=== PATIENT | female | born 1985 | race Caucasian/White ===

== ENCOUNTER 2019-07-04 05:13 | Inpatient (IN) | payer OTHER, BC ==
[2019-07-04] MEDS: ELECTROLYTE-148 SOLN 1,000 ML IV SCH (06:00)
[2019-07-04] MEDS ORDERED: BUTORPHANOL TARTRATE 1 MG/ML VIAL IVPUSH ONE (06:26)
[2019-07-04] MEDS ORDERED: PROMETHAZINE HCL 25 MG/1 ML VIAL IVPB ONE (06:26)
--- NOTE | 2019-07-04 06:32 | HP ---
Past Medical History - Primary Care Physician PCP:: Sharad Zeng - Admission Chief Complaint: 40.3 weeks, labor History of Present Illness: 34 yo f edc by sono 07/01/19 c/o contraction since mid night today, no rom , no bleeding , no fever , cx 4 cm 80 vx -2 mi , fhr cat 1 , regular contraction .GBS negative History Source: Patient Limitations to Obtaining History: No Limitations - Past Medical History ...: 1 ...Para: 0 - Past Surgical History Hx Myomectomy: No Hx Transabdominal Cerclage: No - Smoking History Have you smoked in the past 12 months: No - Alcohol/Substance Use Hx Alcohol Use: No History of Substance Use: reports: None - Social History Usual Living Arrangement: Yes: With Spouse History of Recent Travel: No Home Medications - Allergies Allergies/Adverse Reactions: Allergies Allergy/AdvReac Type Severity Reaction Status Date / Time No Known Allergies Allergy Verified 02/14/19 08:38 - Home Medications Home Medications: Ambulatory Orders Cholecalciferol (Vitamin D3) [Vitamin D -] 1 tab PO DAILY 02/14/19 Prenat 115/Iron Fum/Folic/Dss [ 19 Tablet] 1 tab PO DAILY 02/14/19 Review of Systems - Review of Systems Constitutional: reports: No Symptoms Eyes: reports: No Symptoms HENT: reports: No Symptoms Neck: reports: No Symptoms Cardiovascular: reports: No Symptoms Respiratory: reports: No Symptoms Gastrointestinal: reports: No Symptoms Genitourinary: reports: No Symptoms Musculoskeletal: reports: No Symptoms Integumentary: reports: No Symptoms Neurological: reports: No Symptoms Endocrine: reports: No Symptoms Hematology/Lymphatic: reports: No Symptoms Psychiatric: reports: No Symptoms Physical Exam - Maternity Constitutional: Yes: Well Nourished, No Distress, Calm Eyes: Yes: WNL, Conjunctiva Clear, EOM Intact HENT: Yes: WNL, Atraumatic, Normocephalic Neck: Yes: WNL, Supple, Trachea Midline Cardiovascular: Yes: WNL, Regular Rate and Rhythm Breast(s): Yes: WNL - Abdominal Exam/OB Fundal Height: 40 Number of Fetuses: Single Presentation: Vertex Contractions: Yes Regularity: Regular Intensity: Mod/Strong Monitor Mode: External Heart Rate Location: [facility] Category: I Accelerations: Non-Uniform Decelerations: None - Vaginal Exam/OB Vaginal Bleediing: No Speculum Exam: No Dilatation (cm): 4 cm Effacement (%): 80 Amniotic Membrane Status: Intact Station: -2 - Physical Exam Musculoskeletal: Yes: WNL Extremities: Yes: WNL Edema: Yes Edema: LLE: Trace, RLE: Trace Deep Tendon Reflex Grade: Normal +2 ...Motor Strength: WNL Psychiatric: Yes: WNL Problem List - Problems (1) Post term over 40 weeks Code(s): O48.0 - POST-TERM (2) Labor established Code(s): YNT4364 - Assessment/Plan plan admit , FHM pain management
[2019-07-04] MEDS ORDERED: FENTANYL/BUPIVACAINE/NS/PF - PCEA - 50 ML DISP.SYRIN EP ONE ×2 (06:45→12:53)
[2019-07-04] MEDS: FENTANYL/BUPIVACAINE/NS/PF - PCEA - 50 ML DISP.SYRIN EP SCH (07:00)
[2019-07-04 07:11] LABS: INR 0.92 (0.83-1.09); PROTHROMBIN TIME (PATIENT) 10.9 SEC (9.7-13.0)
[2019-07-04 07:13] LABS: CALCIUM 9.6 mg/dL (8.5-10.1); CREATININE 0.5 mg/dL (0.55-1.3); POTASSIUM 3.7 mmol/L (3.5-5.1)
[2019-07-04 07:14] LABS: ACTIVATED PTT 28.7 SECONDS (25.2-36.5)
[2019-07-04 07:23] LABS: EOS % 0.2 % (0-4.5); HEMATOCRIT 36.7 % (32.4-45.2); HEMOGLOBIN 12.6 GM/dL (10.7-15.3); LYMPH % 27.2 % (8-40); MCH 30.4 pg (25.7-33.7); MCHC 34.3 g/dl (32.0-36.0); MEAN CELL VOLUME 88.6 fl (80-96); MEAN PLT VOLUME 10.4 fl (7.5-11.1); MONO % 7.8 % (3.8-10.2); NEUT % 63.8 % (42.8-82.8); PLATELET COUNT 220 K/MM3 (134-434); RBC 4.14 M/mm3 (3.60-5.2); RDW 13.9 % (11.6-15.6); WHITE BLOOD COUNT 12.9 K/mm3 (4.0-10.0)
[2019-07-04 07:48] VITALS: BMI 39.2
[2019-07-04] MEDS ORDERED: NALOXONE HCL 0.4 MG/ML VIAL IVPUSH PRN (07:53)
[2019-07-04] MEDS ORDERED: FENTANYL/BUPIVACAINE/NS/PF - PCEA - 50 ML DISP.SYRIN EP SCH (08:00)
[2019-07-04] MEDS ORDERED: OXYTOCIN 20 UNITS in 0.9% NS 20 UNIT/1,000 ML INFUS.BAG IV ONE (10:15)
[2019-07-04] MEDS ORDERED: LIDOCAINE HCL 1% PRESERVATIVE FREE - 30ML VIAL ONE (10:15)
--- NOTE | 2019-07-04 10:54 | PN ---
Progress Note, Labor Vaginal Exam #1 Labor Exam Date: 07/04/19 Labor Exam Time: 09:58 Heart Rate (range): 70's prolonged decel Dilatation: FD Effacement (%): 100 Amniotic Membrane Status: Intact Presentation: Vertex/Position Station: -1 (Prolonged FHR decel noted AROM clear fluid, FSE placed FHR recovered fully Will let passive head descent till start 2nd stage)
--- NOTE | 2019-07-04 13:06 | PN ---
Progress Note, Labor Vaginal Exam #2 Labor Exam Date: 07/04/19 Labor Exam Time: 13:00 Heart Rate (range): 140' several varriables Dilatation: FD Effacement (%): 100 Amniotic Membrane Status: Ruptured Presentation: Vertex/Position Station: +1 Remarks: Patient is very uncooperative, demanding pain medication, refusing to push, difficult to reason with I gave patient further medication into epidural catheter FHR is recovering
--- NOTE | 2019-07-04 14:33 | PN ---
Delivery - Delivery Vaginal Delivery: No Problems (Cord around the neck x 1) Type of Anesthesia: Epidural Episiotomy/Laceration: 1st degree (and R labia lateral tear) EBL (cc): 300 Delivery, Single - Stages of Labor Date 1st Stage Initiatied: 07/04/19 Time 1st Stage Initiated: 06:45 Date 2nd Stage Initiated: 07/04/19 Time 2nd Stage Initiated: 12:00 Date of Delivery: 07/04/19 Time of Delivery: 13:44 Date Placenta Delivered: 07/04/19 Time Placenta Delivered: 13:46 Placenta: Yes: Spontaneous - Condition of Infant Transaction Processor/Wage Hand Present: No Gender: Male Weight: 8 lb 2 oz Position: Left, OA - 1 Minute Total Score: 7 5 Minutes Total Score: 9 - Feeding Plan Initial Plan: Exclusive throughout hospitalization Benefits of Exclusively reinforced: Yes Remarks - Remarks Remarks: Ridkin maneuver performed to expedite delivery since patient was not fully cooperating head and shoulders delivered without difficulty baby handed to the nurses
[2019-07-04] MEDS ORDERED: BENZOCAINE 20% 57 GM BOTTLE TP PRN (14:35)
[2019-07-04] MEDS ORDERED: BENZOCAINE 28 GM HEMORRHOIDAL OINTMENT TP PRN (14:35)
[2019-07-04] MEDS ORDERED: METHYLERGONOVINE MALEATE 0.2 MG/1 ML AMP IM PRN (14:35)
[2019-07-04] MEDS ORDERED: WITCH HAZEL 50% (TUCKS) 40 PAD/JAR PAD TP PRN (14:35)
[2019-07-04] MEDS ORDERED: BISACODYL 10 MG SUPP.RECT RC PRN (14:35)
[2019-07-04] MEDS ORDERED: D5W-LR W/ 20 UNITS OXYTOCIN 20 UNIT/1,000 ML INFUS.BAG IV SCH (14:45)
[2019-07-04] MEDS ORDERED: IBUPROFEN 600 MG TABLET (FP) PO ONE (17:38)
[2019-07-04] MEDS ORDERED: ACETAMINOPHEN 325 MG TABLET (FP) ONE (17:38)
[2019-07-04] MEDS: IBUPROFEN 600 MG TABLET (FP) PO PRN (17:57)
[2019-07-04] MEDS: ACETAMINOPHEN 325 MG TABLET (FP) PO PRN (17:58)
[2019-07-04] MEDS: FERROUS SO4 325 MG TABLET (FP) PO SCH (22:55)
[2019-07-04] MEDS: SENNOSIDES/DOCUSATE COMBO (SENNA PLUS) TABLET (UD) PO PRN (23:23)
[2019-07-05 07:47] LABS: BASO % 0.6 % (0-2.0); EOS % 0.5 % (0-4.5); HEMATOCRIT 30.1 % (32.4-45.2); HEMOGLOBIN 10.3 GM/dL (10.7-15.3); LYMPH % 15.2 % (8-40); MCH 30.9 pg (25.7-33.7); MCHC 34.4 g/dl (32.0-36.0); MEAN PLT VOLUME 9.8 fl (7.5-11.1); MONO % 6.9 % (3.8-10.2); NEUT % 76.8 % (42.8-82.8); PLATELET COUNT 199 K/MM3 (134-434); RBC 3.34 M/mm3 (3.60-5.2); RDW 14.4 % (11.6-15.6); WHITE BLOOD COUNT 14.4 K/mm3 (4.0-10.0)
[2019-07-05] MEDS: FENTANYL/BUPIVACAINE/NS/PF - PCEA - 50 ML DISP.SYRIN EP SCH (08:26)
[2019-07-05] MEDS: IBUPROFEN 600 MG TABLET (FP) PO PRN ×2 (08:40→20:34)
[2019-07-05] MEDS: ACETAMINOPHEN 325 MG TABLET (FP) PO PRN ×2 (08:41→20:35)
[2019-07-05] MEDS: PRENATAL VITAMINS W/ FOLIC ACID TABLET (FP) PO SCH (09:53)
[2019-07-05] MEDS: FERROUS SO4 325 MG TABLET (FP) PO SCH ×2 (09:53→21:26)
--- NOTE | 2019-07-05 13:48 | PN ---
Post Progress Note - Subjective Subjective: Patient without acute complaints. Reports tolerating oral intake without nausea or vomiting. Ambulating without dizziness. Denies fevers or chills. Pain well controlled with oral pain medication. without difficulty. Passing flatus. Post Day: 1 Type of Delivery: Vital Signs: Vital Signs Temperature 98.0 F 07/05/19 01:43 Pulse Rate 104 H 07/05/19 01:43 Respiratory Rate 20 07/05/19 01:43 Blood Pressure 126/72 07/05/19 01:43 O2 Sat by Pulse Oximetry (%) 98 07/04/19 17:43 Breast Exam: Yes: Soft Uterus: Yes: Fundus Firm Abdomen/GI: Yes: Abdomen soft Lochia: Yes: Rubra Lochia, amount: Small Extremities: Yes: Calves non-tender Perineum: Yes: Laceration (healing well) Activity: Ambulating - Labs Labs: CBC WBC 14.4 K/mm3 (4.0-10.0) H 07/05/19 07:15 RBC 3.34 M/mm3 (3.60-5.2) L 07/05/19 07:15 Hgb 10.3 GM/dL (10.7-15.3) L 07/05/19 07:15 Hct 30.1 % (32.4-45.2) L D 07/05/19 07:15 MCV 90.0 fl (80-96) 07/05/19 07:15 MCH 30.9 pg (25.7-33.7) 07/05/19 07:15 MCHC 34.4 g/dl (32.0-36.0) 07/05/19 07:15 RDW 14.4 % (11.6-15.6) 07/05/19 07:15 Plt Count 199 K/MM3 (134-434) 07/05/19 07:15 MPV 9.8 fl (7.5-11.1) 07/05/19 07:15 Absolute Neuts (auto) 11.0 K/mm3 (1.5-8.0) H 07/05/19 07:15 Neutrophils % 76.8 % (42.8-82.8) D 07/05/19 07:15 Lymphocytes % 15.2 % (8-40) D 07/05/19 07:15 Monocytes % 6.9 % (3.8-10.2) 07/05/19 07:15 Eosinophils % 0.5 % (0-4.5) D 07/05/19 07:15 Basophils % 0.6 % (0-2.0) 07/05/19 07:15 Nucleated RBC % 0 % (0-0) 07/05/19 07:15 Assessment/Plan 34yo P1 s/p VSS, Afebrile doing well instructed on perineum care RH pos, no need for Rhogam continue routine PP care plan d/c in am desires no circumcision
[2019-07-05] MEDS: SENNOSIDES/DOCUSATE COMBO (SENNA PLUS) TABLET (UD) PO PRN (20:36)
[2019-07-05] MEDS: ELECTROLYTE-148 SOLN 1,000 ML IV SCH (23:46)
--- NOTE | 2019-07-06 07:50 | DS ---
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 Vital Signs: Vital Signs Temperature 99.3 F 07/05/19 21:39 Pulse Rate 94 H 07/05/19 21:39 Respiratory Rate 20 07/05/19 21:39 Blood Pressure 129/77 07/05/19 21:39 O2 Sat by Pulse Oximetry (%) 98 07/04/19 17:43 Labs: CBC, BMP 07/05/19 07:15 07/04/19 06:30 Delivery - Delivery Vaginal Delivery: No Problems (Cord around the neck x 1) Type of Anesthesia: Epidural Episiotomy/Laceration: 1st degree (and R labia lateral tear) EBL (cc): 300 Delivery, Single - Stages of Labor Date 1st Stage Initiatied: 07/04/19 Time 1st Stage Initiated: 06:45 Date 2nd Stage Initiated: 07/04/19 Time 2nd Stage Initiated: 12:00 Date of Delivery: 07/04/19 Time of Delivery: 13:44 Time Placenta Delivered: 13:46 Placenta: Yes: Spontaneous - Condition of Records Assistant/Manager Social Work Present: No Gender: Male Weight: 8 lb 2 oz Position: Left, OA Total Hours ROM (Hrs/Mins): 3Hrs/44Mins - 1 Minute Total Score: 7 5 Minutes Total Score: 9 - [place] Feeding Plan Initial Plan: Exclusive throughout hospitalization Benefits of Exclusively reinforced: Yes Discharge Summary Reason For Visit: ADMIT LABOR Current Active Problems Labor established (Acute) Post term over 40 weeks (Acute) - Instructions - Home Medications Comprehensive Discharge Medication List: Ambulatory Orders Cholecalciferol (Vitamin D3) [Vitamin D -] 1 tab PO DAILY 02/14/19 Prenat 115/Iron Fum/Folic/Dss [ 19 Tablet] 1 tab PO DAILY 02/14/19
[2019-07-06] MEDS: FERROUS SO4 325 MG TABLET (FP) PO SCH (10:55)
[2019-07-06] MEDS: PRENATAL VITAMINS W/ FOLIC ACID TABLET (FP) PO SCH (10:55)
[2019-07-06 11:42] VITALS: BP 122/74; PULSE 83; TEMP 98.8
== END 2019-07-06 12:30 | disposition home or self-care (01) | DRG 807 ==
LOC: JDEL 05:13 → JLDR 05:58 → J3W 16:30
PROVIDERS: ADMIT Obstetrics & Gynecology; ATTEND Obstetrics & Gynecology
PROC: 10E0XZZ Delivery of Products of Conception, External Approach (ICD-10-PCS; principal; 2019-07-04)
PROC: 0W8NXZZ Division of Female Perineum, External Approach (ICD-10-PCS; 2019-07-04)
PROC: 0HQ9XZZ Repair Perineum Skin, External Approach (ICD-10-PCS; 2019-07-04)
DX: O70.0 First degree perineal laceration during delivery (principal); Z37.0 Single live birth; O48.0 Post-term pregnancy; Z3A.40 40 weeks gestation of pregnancy; O69.81X0 Labor and delivery complicated by cord around neck, without compression, not applicable or unspecified
CPT/HCPCS: 36415; 36600; 59409; 80048; 82803; 85025; 85610; 85730; 86593; 86850; 86900; 86901; 87389